=== PATIENT | male | born 1980 | race Two or more races ===

== ENCOUNTER → 2021-02-11 | Outpatient (CLI) | payer BC ==
--- NOTE | 2021-02-11 15:39 | RAD ---
Exam: CT abdomen/pelvis without intravenous contrast Indication: Hematuria Comparison: 05/26/2010 Technique: Helical CT imaging performed of the abdomen and pelvis without the use of intravenous cont rast. Sagittal and coronal reformats were obtained. One or more of the following individualized dose reduction techniques were utilized for this examinat ion: 1. Automated exposure control 2. Adjustment of the mA and/or kV according to patient size 3. Use of iterative reconstruction technique. Findings: Inherently limited evaluation without intravenous contrast. Lower chest: There is calcified granuloma in the right lower lobe. Heart is normal in size. Liver: Unremarkable noncontrast appearance of the liver. Gallbladder/Biliary Tree: Normal. Pancreas: Normal. Spleen: Normal. Adrenal Glands: Normal. Kidneys/Ureters/Bladder: Kidneys are normal in size. No nephrolithiasis or hydronephrosis. There is a 1.6 cm hypodense lesion in the mid right kidney with slightly greater than fluid density, Hounsfield units 19. This was present in 2009 where it measured 1.3 cm. Ureters are normal. Urinary bladder is normal. Reproductive Organs: Prostate gland is normal. Stomach, small bowel, and colon: Stomach, small bowel, colon, and appendix are normal. Vasculature: No aortic aneurysm. Lymph Nodes: No lymphadenopathy. Peritoneum and retroperitoneum: No free fluid or free air. Bones: No acute osseous abnormality. 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 S mall disc bulge at L5-S1. Impression: 1. No urolithiasis or hydronephrosis. 1.6 cm hypodense lesion in the right kidney. This has slightly greater than simple fluid density but was present in 2009, most likely a complicated cyst. This is likely a minimally complex cyst and was present for slightly smaller Electronically signed by: Julianna Lane MD (02/11/2021 3:37 PM) [id number]
== END ==
LOC: CT 12:28
PROVIDERS: ATTEND Family Medicine
DX: R31.9 Hematuria, unspecified (principal); M46.1 Sacroiliitis, not elsewhere classified; J84.10 Pulmonary fibrosis, unspecified; M51.27 Other intervertebral disc displacement, lumbosacral region
CPT/HCPCS: 74176